=== PATIENT | female | born 1955 | race Caucasian/White ===

== ENCOUNTER 2024-12-04 12:43 | Outpatient (AMB) | payer MEDICARE, SELFPAY ==
--- NOTE | 2024-12-04 13:02 | A.OFFVIS_ITS ---
Intake Visit Reasons: results Allergies acetaminophen (From Tylenol-Codeine #3) Allergy (Verified 12/03/24 11:16) Unknown amoxicillin Allergy (Verified 12/03/24 11:16) Unknown codeine (From Tylenol-Codeine #3) Allergy (Verified 12/03/24 11:16) Unknown HPI Comments Details: 69 yo woman with obesity and IDDM was here for bilateral hand numbness and pain. It was happening for a few weeks. Pain was burning type and keeping her awake at night. It was mostly noted at night. Hands were also getting weak and things were falling from her hands. She was losing feeling in fingers. She was here after the test [facility] Medical History (Updated 12/04/24 @ 13:12 by Jordan Rivera MD) Diabetes mellitus GERD (gastroesophageal reflux disease) Hypertension Physical Exam Neuro Other: Mental Status: Alert with normal orientation and attention. Normal spontaneous speech, fluency, and comprehension. No obvious issues with mood and memory. Affect is appropriate. Cranial Nerves: CN II: Visual knight full to confrontation, visual acuity intact. CN III, IV, : Pupils equal, round, reactive to light and accommodation. Extraocular movements are normal. CN V: Facial sensation is normal. CN VII: Facial movements symmetrical. CN VIII: Hearing intact to bedside conversation is normal. Motor: Bulk and tone normal in all extremities. No significant muscle weakness in arms and legs. No drift. Gait and Station: No obvious gait abnormality. No ataxia or instability. Sensory: Intact to light touch, pinprick, and vibration. Romberg is negative. Extrapyramidal: Full facial expressions and blinking. No rigidity. Movements are appropriate with no tremor or abnormality. Speech: Normal; no dysarthria or tremor. 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 At this time she is advised to continue using wrist splints at night, as they have been helping. If after about 3 months, her symptoms would worsened or continue, surgical decompression can be considered. She should avoid repetitive hand motion and heavy physical activity with hands. Coding Level of Care Code Est Pt Level 3 (33835) Diagnoses Bilateral carpal tunnel syndrome G56.03 Laterality: bilateral
--- OUTSIDE RECORDS SUMMARY | 2024-12-04 13:36 | XMS_ITS | Clinical Summary ---
Author Organization [address] Address [address] [place] [address] Phone Care Team Providers Care [employer] Estate Investment Analyst Name Role Phone En Ballard MD Primary Care Provider [phone] Allergies Active Allergy Reactions Criticality Noted Date Comments Amoxicillin Swelling 04/24/2024 Amoxicillin Trihydrate Itching Medium 09/15/2008 Other Reaction(s): Hives/Urticaria Codeine 05/24/2005 Other Reaction(s): Hives/Urticaria Exenatide Diarrhea 08/01/2009 Byetta Lidocaine Base 04/24/2024 Novocain - tachycardia Linagliptin Diarrhea High 11/15/2018 Tradjenta Lisinopril Cough High 10/22/2016 Pioglitazone 06/20/2007 Weight gain and water retention/ Actos Simvastatin 11/03/2021 Other Reaction(s): Myalgia and Joint Pain Medications albuterol HFA (PROAIR HFA ; PROVENTIL HFA ; VENTOLIN HFA) 90 mcg/actuation inhaler Inhale 2 Puffs into the lungs every 4 hours as needed for Cough or Wheezing. 10/03/19 24 Active aspirin 81 mg chewable tablet Take 81 mg by mouth daily. Active cetirizine (ZyrTEC) 10 mg tablet Take 10 mg by mouth daily. Active blood-glucose meter kit 1 Units by Does not apply route 4 times daily. 02/27/20 20 Active calcium carbonate (CHEWABLE CALCIUM ORAL) 600mg 2 chews daily Active fluticasone propionate (FLONASE) 50 mcg/actuation nasal spray 2 Sprays by Each Nare route daily for 30 days. 01/20/20 23 Active FREESTYLE LANCETS MISC 1 Device 4 times daily. Use to test blood sugar four times a day 01/19/20 11 Active fluoride, sodium, (PreviDent 5000 Booster Plus) 1.1 % paste USE DIRECTED TO BRUSH TEETH TWICE DAILY 09/09/19 23 Active multivitamin (MULTIPLE VITAMINS ORAL) 1 daily Activ e insulin syringe-needle U-100 1/2 mL 28 gauge syringe Use as needed 3 times a day with insulin 01/20/20 22 Active pen needle, diabetic 32 gauge x 5/32 needle Use with pens 5 times A day 10/01/19 23 Active latanoprost (XALATAN) 0.005 % ophthalmic solution Administer 1 drop into both eyes at bedtime. 12/12/19 24 Active insulin icebox man cart,aut,G6/7,c ntr (Omnipod 5 G6-G7 Intro Kt,Gen5,) cartridge Use daily for insulin delivery 1 each 04/24/20 24 Active insulin pump cart,auto,BT,G6 /7 (Omnipod 5 G6-G7 Pods, Gen 5,) cartridge Change pod every 3 days 30 each 3 07/17/19 25 Active amLODIPine (NORVASC) 5 mg tablet Take 1 tablet (5 mg total) by mouth 1 (one) time each day. 30 each 5 08/15/19 25 025 Active insulin glargine (Lantus Solostar U-100 Insulin) 100 unit/mL (3 mL) injection pen INJECT SUBCUTANEOUSLY 54 units BID SC 105 mL 2 08/18/19 25 Active Additional Information Patient taking differently: INJECT SUBCUTANEOUSLY 54 units BID SC - When not using pump, Reported on 11/08/2024 furosemide (LASIX) 40 mg tablet Take 1 tablet (40 mg total) by mouth 1 (one) time each day. 90 tablet 1 10/17/19 25 Active losartan (COZAAR) 100 mg tablet Take 1 tablet (100 mg total) by mouth 1 (one) time each day. 90 tablet 10/16/19 25 Active omeprazole (PriLOSEC) [address] capsule Take 1 capsule (20 mg total) by mouth 1 (one) time each day. Do not crush or chew. 90 each 10/27/19 25 025 Active insulin lispro (HumaLOG KwikPen Insulin) 100 unit/mL injection pen Inject 3 times a day with meals per sliding scale: 100-149:11 units; 150-200; 13 units; 201-249: 14 units; 250-300: 15 units; 301-350: 16 units; 351-400: 17 units, plus 4 more units at dinner Max daily dose 80 units 15 mL 11/01/19 25 Active Additional Information Patient taking differently: Inject 3 times a day with meals per sliding scale: 100-149:11 units; 150-200; 13 units; 201-249: 14 units; 250-300: 15 units; 301-350: 16 units; 351-400: 17 units, plus 4 more units at dinner Max daily dose 80 units - When not using PUMP, Reported on 11/08/2024 tirzepatide (Mounjaro) 7.5 mg/0.5 mL injectionIndica tions:Type 2 diabetes mellitus with diabetic neuropathy, unspecified whether ferry terminal agent insulin use ([facility] V24, [facility] V28) Inject 0.5 mL (7.5 mg total) under the skin every 7 (seven) days. 2 mL 11/09/19 25 Active insulin lispro 100 unit/mL injection Use daily with insulin pump. Max dose 150 units 150 mL 1 11/13/19 25 Active tirzepatide (Mounjaro) 5 mg/0.5 mL injectionIndica tions:Type 2 diabetes mellitus with diabetic neuropathy, unspecified whether mcc insulin use ([facility] V24, [facility] V28) Inject 0.5 mL (5 mg total) under the skin every 7 (seven) days. 2 mL 10/19/19 25 025 Discontin ued(Formu destiny change) insulin lispro 100 unit/mL injection Use daily with insulin pump. Max dose 150 units 30 mL 11 10/27/19 25 025 Discontin ued(Reord er) insulin lispro 100 unit/mL injection Use daily with insulin pump. Max dose 150 units 30 mL 11 11/09/19 25 025 Discontin ued(Reord er) Active Problems Problem Noted Date Diagnosed Date Thyroid nodule 05/18/2021 Subclinical hyperthyroidism 05/18/2021 Venous insufficiency of both lower extremities 1 07/11/2017 Morbid obesity ([facility] V24, [facility] V28) 2013 Type 2 diabetes mellitus wit h diabetic neuropathy ([facility] V24, [facility] V28) 03/20/2013 Diabetic polyneuropathy ([facility] V24, [facility] V2 8) 03/20/2013 Eczema 02/27/2008 Irritable bowel syndrome 04/09/2005 Goiter 04/09/2005 Overview (03/19/2024): IMO update Hyperlipidemia 04/09/2005 Encounters Date Type Department Care Team Description 11/14/2024 Telephone Endocrinology - [address] [phone] Nikki Jules PA Medication Problem 11/08/2024 8:00 AM EDT Office Visit Endocrinology - [address] [phone] Nikki Jules PA Type 2 diabetes mellitus with diabetic neuropathy, unspecified whether mcc insulin use ([facility] V24, [facility] V28) (Primary Dx); Secondary hypertension; Thyroid nodule 10/23/2024 Telephone Endocrinology - [address] [phone] Nikki Jules PA 10/18/2024 2:30 PM EDT Office Visit Endocrinology - [address] [phone] Nikki Jules PA Type 2 diabetes mellitus with diabetic neuropathy, unspecified whether mcc insulin use ([facility] V24, [facility] V28) (Primary Dx); Screening for osteoporosis; Postmenopausal; Thyroid nodule 10/16/2024 3:27 PM EDT - 10/16/2024 11:59 PM EDT [facility] [address] [place] [address] Thyroid nodule Discharge Disposition: Home or Self Care 09/06/2024 10:00 AM EDT Consult Vascular Surgery - [place] [address] [place] [address] Minal Menchaca PA Bilateral lower extremity edema (Primary Dx); Morbid obesity (CMS/HCC V24, CMS/HCC V28) from Last 3 Months Immunizations Name Administration Dates Next Due Influenza Quadravalent, MDCK , 0.5ml, preservative free (Flucelvax) 6mo and older 05/18/2019,02/23/2018 Influenza trivalent, 0.5mL ( Fluad) 65yo and older 02/22/2021,03/24/2020 Influenza trivalent, 0.5mL, preservative free (Fluarix; FluLaval; Fluzone) ages 6mo and older (Afluria) 3 years and older 02/26/2016,02/21/2013,03/20/2012,02/10,04/04/2010,02/27/2009,03/14/2007 ,03/08/2006,05/01/2001 Pfizer SARS-CoV-2 COVID-19, mRNA, LNP-S, preservative free 04/16/2021,10/03/2020 Pneumococcal conjugate 13 va lent (Prevnar 13, PCV13) 2mo and older 11/03/2021 Pneumococcal polysaccharide 23 valent (Pneumovax 23) 2yo and older 03/24/2020,06/05/1996 Td Tetanus diptheria (Tdvax) 7yo and older 08/04/2020 Tdap Tetanus diptheria acell ular pertussis (Boostrix; Adacel) 7yo and older 03/14/2007 Surgical History Surgery Date Site/Laterality Comments CHOLECYSTECTOMY PROCEDURE: LAPAROSCOPY, CHOLECYSTECTOMY LAPAROSCOPIC GASTRIC BANDING 06/2006 PROCEDURE: LAP ADJUSTABLE GASTRIC BAND; COMMENT: Luis Alberto FOOT SURGERY PROCEDURE: HISTORICAL FOOT SURGERY; COMMENT: SMALL TOES HYSTERECTOMY PROCEDURE: HISTORICAL HYSTERECTOMY BREAST BIOPSY 2016 Right PROCEDURE: BX BREAST; PERC NEEDLE CORE W/IMAG GUID; COMMENT: neg CYSTOSCOPY 02/2020 PROCEDURE: [place] CYSTOURETHROSCOPY; COMMENT: for evaluation of LUTS, Dr Moya OTHER SURGICAL HISTORY Right PROCEDURE: HISTORY OTHER; COMMENT: removed Goiter on R side of Thyroid Medical History Medical History Date Comments Chest pain, unspecified 04/09/2005 DX:Chest pain, unspecified Other and unspecified hyperlipidemia 04/09/2005 DX:Other and unspecified hyperlipidemia Irritable bowel syndrome 04/09/2005 DX:Irri table bowel syndrome Goiter, unspecified 04/09/2005 DX:Goiter, u nspecified Morbid obesity (CMS/HCC V24, CMS/HCC V28) 04/09/2005 DX:Morbid obesity (HCC); COM MENT: Luis Alberto; Lap Gastric Band Obesity, unspecified 03/14/2007 DX:Obesity, unspecified; COMMENT: gastric lab banding, Luis Alberto Status following gastric ban ding surgery for weight loss 06/20/2007 DX:Status following gastric banding surgery for weight loss Seasonal allergies 09/29/2007 DX:Seasonal a llergies Type II or unspecified type diabetes mellitus without mention of complication, not stated as uncontrolled 04/09/2005 DX:Type II or unspecified ty pe diabetes mellitus without mention of complication, not stated as uncontrolled Esophageal reflux DX:Esophageal reflux Family History Medical History Relation Name Comments Alcohol abuse Brother Brain Aneurysm Brother Cirrhosis Brother Diabetes Brother No Known Problems Daughter Arthritis Father Hypertension Father Diabetes Mother Stroke Mother Diabetes Sister 1 Heart attack Sister 1 Other: other Sister 1 copd COPD Sister 2 Diabetes Sister 2 Diabetes Son x2 Hypertension Son x2 Relation Name Status Comments Brother DM, Daughter Alive Father (Age 84) DM, HTN Mother Sister 1 DM, HTN Sister 2 DM, HEPATITIS, HIV POS Son x2 Alive Social History Tobacco Use Types Packs/Day Years Used Date Smoking Tobacco: Never Smokeless Tobacco: Never Tobacco Cessation:Counseling Given: Not Answered Alcohol Use Standard Drinks/Week Comments No 0 (1 standard drink = 0.6 oz pur e alcohol) Housing Instability Answer Date Recorde d Are you worried that in the next 2 months you may not have stable housing? No 08/14/2024 Food Access & Nutrition Answer Date Rec orded Do you have access to a vari ety of food including fruits and vegetables? Yes 08/14/2024 Access to Healthcare Answer Date Record ed Within the last 3 months, ho w many times did you visit the emergency department for your medical care? 0 08/14/2024 Health Literacy Answer Date Recorded How often do you need to hav e someone help you when you read instructions, pamphlets, or other written material from your doctor or pharmacy? Never 08/14/2024 Caregiver: How often do you need to have someone help you when you read instructions, pamphlets, or other written material from your doctor or pharmacy? Not on file 08/14/2024 Financial Risk Answer Date Recorded How hard is it for you to pa y for the very basics like food, housing, medical care, and air conditioning / heating? Not very hard 08/14/2024 Transportation Answer Date Recorded Has the lack of transportati on kept you from meetings, work, or from getting things needed for daily living? No 08/14/2024 Has the lack of transportati on kept you from medical appointments or from getting medications? Not on file 08/14/2024 Social Isolation Answer Date Recorded How often do you feel lonely or isolated from th ose around you? Never 08/14/2024 Food Risk Answer Date Recorded Within the past 12 months we worried whether our food would run out before we got money to buy more. Never true 08/14/2024 Within the past 12 months th e food we bought just didn't last and we didn't have money to get more. Never true 08/14/2024 Dependent Care Answer Date Recorded Do you need help finding or paying for care for your loved ones. For example, child protection specialist or elderly care for an older adult? No 08/14/2024 Education Answer Date Recorded Do you think completing more education or training, like finishing a GED, going to college, or learning a trade, would be helpful for you? N/A 08/14/2024 Employment and Income Answer Date Recor ded During the last four weeks, have you been actively looking for work? No 08/14/2024 Living Situation Answer Date Recorded What is your living situation? 0 08/14/2024 Comments No Sex and Gender Information Value Date Recorded Sex Assigned at Female 06/29/2024 9:30 AM EST Legal Sex Female 4:37 AM EST Gender Identity Female 06/29/2024 9:30 AM EST Sexual Orientation Straight 06/29/2024 9: 30 AM EST Obstetrics History Last Filed Vital Signs Vital Sign Reading Time Taken Comments Blood Pressure 112/72 11/08/2024 8:15 AM EDT C Pulse 72 11/08/2024 8:15 AM EDT Temperature 36.1 C (96.9 F) 11/08/2024 8:15 AM EDT Respiratory Rate - - Oxygen Saturation 96% 10/18/2024 2:42 PM EDT Inhaled Oxygen Concentration - - Weight 139 kg (306 lb) 11/08/2024 8:15 AM EDT Height 168.9 cm (5' 6.5 ) 11/08/2024 8:15 AM EDT Body Mass Index 48.65 11/08/2024 8:15 AM EDT Plan of Treatment Upcoming Encounters Date Type Department Care Team (Late st Contact Info) Description 12/13/2024 8:30 AM EDT Ancillary Procedure [facility] [address] [facility] [address] [place] [address] 12/21/2024 9:30 AM EDT [facility]ointment [facility] [address] [place] [address] 12/25/2024 9:00 AM EDT Appointment [facility] Bone Density [address] [place] [address] 12/27/2024 11:30 AM EDT Office Visit Vascular Surgery - [place] [address] [facility] [address] [place] [address] Keren Delacruz MD [address] [facility] [address] [place] [address] 01/24/2025 9:00 AM EDT Office Visit Internal Medicine - [address] [phone] En Ballard MD [address] [place] [address] 02/08/2025 9:30 AM EDT Office Visit Endocrinology - [address] [phone] Nikki Jules PA [address] [place] [phone] Health Maintenance Due Date Last Done Comments Diabetes: Annual Foot Exam 1965 Zoster Vaccines (1 of 2) 2005 Medicare Annual Wellness Visit 05/15/2022 Osteoporosis Screening (Bone Density Screening) 05/15/2022 Breast Cancer Screening 01/23/2023 01/23/2021, 01/03 Diabetes: Annual Urine Albumin-Creatinine Ratio (uACR) 11/19/2023 11/18/2022 COVID-19 Vaccine ( season) 2024 02/23/2024, 2024, 12/25/2021, Additional history exists Diabetes: Annual Retina Eye Exam 12/19/2024 12/20/2023 Diabetes: Blood Sugar Control Test (HGBA1C) 02/14/2025 08/14/2024, 04/20/2024, 10/25/2023, Additional history exists Depression Screening 08/14/2025 08/14/2024 Diabetes: Annual GFR (Glomerular Filtration Rate) 08/14/2025 08/14/2024, 12/02/2023, 12/02/2023, Additional history exists Falls Risk Assessment 08/14/2025 08/14/2024 Hypertension/CHF/CAD Annual BMP Blood Test 08/14/2025 08/14/2024, 12/02/2023, 12/02/2023, Additional history exists Social Influencers of Health Screening 08/14/2025 08/14/2024 Cholesterol Screening (Lipid Panel) 08/14/2029 08/14/2024, 10/25/2023, 10/25/2023 DTaP,Tdap,and Td Vaccines (3 - Td or Tdap) 08/04/2030 08/04/2020, 03/14/2007 Colorectal Cancer Screening: Colonoscopy 09/03/2030 09/03/2020 Hepatitis C Screening Completed 09/17/2021 Influenza Vaccine Completed 02/23/2024, , 04/16/2021, Additional history exists Pneumococcal Vaccine: 50+ Years Completed 02/23/2024, 2024, 11/03/2021, Additional history exists RSV Immunization Adult Patients Completed 02/23/2024 HIB Vaccines Aged Out No longer eligi ble based on patient's age to complete this topic HPV Vaccines Aged Out No longer eligi ble based on patient's age to complete this topic Hepatitis A Vaccines Aged Out No long er eligible based on patient's age to complete this topic Hepatitis B Vaccines Aged Out No long er eligible based on patient's age to complete this topic IPV Vaccines Aged Out No longer eligi ble based on patient's age to complete this topic MMR Vaccines Aged Out No longer eligi ble based on patient's age to complete this topic Meningococcal ACWY Vaccine Aged Out N o longer eligible based on patient's age to complete this topic Meningococcal B Vaccine Aged Out No l onger eligible based on patient's age to complete this topic RSV Immunization Patients Under 20 months Aged Out No longer eligible based on patient's age to complete this topic Varicella Vaccines Aged Out No longer eligible based on patient's age to complete this topic Procedures Procedure Name Priority Date/Time Associated Diagnosis Comments US HEAD NECK SOFT TISSUE Routine 10/16/2024 3:57 PM EDT Thyroid nodule BASIC METABOLIC PANEL Routine 08/14/2024 9:38 AM EDT Type 2 diabetes mellitus with diabetic neuropathy, unspecified whether mcc insulin use (CMS/HCC V24, [facility] V28) Primary hypertension HEMOGLOBIN A1C Routine 08/14/2024 9:38 AM EDT Type 2 diabetes mellitus with diabetic neuropathy, unspecified whether ferry terminal agent insulin use (CMS/HCC V24, CMS/[facility] V28) LIPID PANEL WITH REFLEX TO DIRECT LDL Routine 08/14/2024 9:38 AM EDT Type 2 diabetes mellitus with diabetic neuropathy, unspecified whether mcc insulin use (CMS/HCC V24, CMS/HCC V28) Primary hypertension DIABETES EYE EXAM Routine 12/20/2023 URINE ALBUMIN CREATININE RATIO Routine 11/18/2022 HEPATITIS C SCREENING Routine 09/17/2021 SCREENING MAMMOGRAPHY BI 2-VIEW BREAST INC CAD Routine 01/23/2021 11:42 AM EDT Encounter for screening mammogram for malignant neoplasm of breast HM COLONOSCOPY Routine 09/03/2020 from Last 3 Months or Most Recently Relevant to Health Maintenance Results * US Head Neck Soft Tissue (10/16/2024 3:57 PM EDT) Anatomical Region Laterality Modality Head and Neck Ultrasound 10/16/2024 4:59 PM EDT Impressions 10/16/2024 5:04 PM EDT Left thyroid nodules as described. Direct comparison with the previous study is difficult due to the multinodular goiter. Left isthmus nodule measuring on the previous study is not apparent on the current study. Status post right hemithyroidectomy. -------- FINAL REPORT -------- Dictated By: Jumana Oneal Dictated Date: 10/16/2024 16:59 ET Assigned Physician: Jumana Oneal Reviewed and Electronically Signed By: Jumana Oneal Signed Date: 10/16/2024 17:04 ET Workstation ID: [id number] Transcribed By: Self Edit Transcribed Date: 10/16/2024 16:59 ET Narrative 10/16/2024 5:04 PM EDT US HEAD NECK SOFT TISSUE THYROID SOFT TISSUES NECK HISTORY: Thyroid nodules. Status post right hemithyroidectomy. Prior: Thyroid ultrasound 10/29/2022. FINDINGS: The left lobe of the thyroid gland is heterogeneous in echotexture and demonstrates normal vascularity by color Doppler interrogation. No ultrasound abnormality is seen in the right thyroid bed. 1.3 x 0.6 x 1.0 cm nodule upper pole left lobe, previously 1.5 x 0.6 x 1.1 cm. 1.4 x 0.7 x 1.3 cm nodule midpole left lobe, previously 1.8 x 1.1 x 1.3 cm. 1.3 x 0.9 x 1.3 cm hypoechoic nodule, wider than tall, posterior midpole left lobe. This is apparently new. 1.3 x 0.8 x 1.2 cm nodule lower pole left lobe, previously 1.1 x 1.2 x 1.1 cm. The right lobe of the thyroid is surgically absent. The left lobe of the thyroid measures 5.5 x 2.2 x 2.4 cm. The thyroid isthmus measures 7 mm in thickness. Procedure Note Jumana Oneal MD - 10/16/2024 US HEAD NECK SOFT TISSUE THYROID SOFT TISSUES NECK HISTORY: Thyroid nodules. Status post right hemithyroidectomy. Prior: Thyroid ultrasound 10/29/2022. FINDINGS: The left lobe of the thyroid gland is heterogeneous inechotexture and demonstrates normal vascularity by color Dopplerinterrogation. No ultrasound abnormality is seen in the right thyroid bed. 1.3 x 0.6 x 1.0 cm nodule upper pole left lobe, previously 1.5 x 0.6 x 1.1cm. 1.4 x 0.7 x 1.3 cm nodule midpole left lobe, previously 1.8 x 1.1 x 1.3cm. 1.3 x 0.9 x 1.3 cm hypoechoic nodule, wider than tall, posterior midpoleleft lobe. This is apparently new. 1.3 x 0.8 x 1.2 cm nodule lower pole left lobe, previously 1.1 x 1.2 x 1.1cm. The right lobe of the thyroid is surgically absent. The left lobe of the thyroid measures 5.5 x 2.2 x 2.4 cm. The thyroidisthmus measures 7 mm in thickness. IMPRESSION: Left thyroid nodules as described. Direct comparison with the previousstudy is difficult due to the multinodular goiter. Left isthmus nodulemeasuring on the previous study is not apparent on the current study. Status post right hemithyroidectomy. -------- FINAL REPORT -------- Dictated By: Jumana Oneal Dictated Date: 10/16/2024 16:59 ET Assigned Physician: Jumana Oneal Reviewed and Electronically Signed By: Jumana Oneal Signed Date: 10/16/2024 17:04 ET Workstation ID: [id number] Transcribed By: Self Edit Transcribed Date: 10/16/2024 16:59 ET us Nikki MAIER IMG US PROCEDURES Final Res ult * (ABNORMAL) Lipid panel with reflex to direct LDL (08/14/2024 9:38 AM EDT) Cholesterol 179 0 - 200 mg/dL LAB CHEMISTRY METHOD 08/14/2024 12:18 PM EDT [facility] Triglycerides 82 0 - 150 mg/dL LAB CHEMISTRY METHOD 08/14/2024 12:18 PM EDT [facility] HDL 45 >=40 mg/dL LAB CHEMISTRY METHOD 08/14/2024 12:18 PM EDT [facility] LDL Calculated 118(H) 0 - 100 mg/dL LAB CHEMISTRY METHOD 08/14/2024 12:18 PM EDT [facility] VLDL Cholesterol Raza 16.4 mg/dL LAB CHEMISTRY METHOD 08/14/2024 12:18 PM EDT [facility] Non HDL Chol. (LDL+VLDL) 134 <145 mg/dL LAB CHEMISTRY METHOD 08/14/2024 12:18 PM EDT [facility] Chol/HDL Ratio 4.0 0.0 - 4.4 LAB CHEMISTRY METHOD 08/14/2024 12:18 PM EDT [facility] Blood Venous blood specimen / Unknown Venipuncture / Unknown 08/14/2024 9:38 AM EDT 08/14/2024 9:38 AM EDT us En Ballard MD LAB BLOOD ORDERABLES Final Res ult [facility] [address] [place] [address], * (ABNORMAL) Hemoglobin A1c (08/14/2024 9:38 AM EDT) Hemoglobin A1C 7.6(H) <6.5 % LAB CHEMISTRY METHOD 08/14/2024 2:28 PM EDT [facility] Mean Bld Glu Estim. 171 mg/dL LAB CHEMISTRY METHOD [facility]/14[facility]24 [facility] Blood Venous blood specimen / Unknown Venipuncture / Unknown 08/14/2024 9:38 AM EDT 08/14/2024 9:38 AM EDT us Nikki MAIER LAB BLOOD ORDERABLES Final Result [facility] [address] [place] [address], [place] [phone] * Basic metabolic panel (08/14/2024 9:38 AM EDT) Sodium 139 133 - 145 mmol/L LAB CHEMISTRY METHOD 08/14/2024 12:16 PM [facility] Potassium 4.4 3.5 - 5.5 mmol/L LAB CHEMISTRY METHOD 08/14/2024 12:16 PM [facility] Chloride 105 96 - 110 mmol/L LAB CHEMISTRY METHOD 08/14/2024 12:16 PM [facility] CO2 31 21 - 32 mmol/L LAB CHEMISTRY METHOD 08/14/2024 12:16 PM [facility] Anion Gap 3 3 - 11 LAB CHEMISTRY METHOD 08/14/2024 12:16 PM [facility] Glucose 95 70 - 100 mg/dL LAB CHEMISTRY METHOD 08/14/2024 12:16 PM [facility] BUN 22 5 - 25 mg/dL LAB CHEMISTRY METHOD 08/14/2024 12:16 PM [facility] Creatinine 0.90 0.50 - 1.10 mg/dL LAB CHEMISTRY METHOD 08/14/2024 12:16 PM [facility] eGFR 69 >=60 mL/min/1. 73m2 LAB CHEMISTRY METHOD 08/14/2024 12:16 PM [facility] Comment:Calculation based on the Chronic Kidney Disease Epidemiology Collaboration (CKD-EPI) equation refit without adjustment for race. BUN/Creatinine Ratio 24.4 LAB CHEMISTRY METHOD 08/14/2024 12:16 PM EDT [facility] Calcium 9.0 8.5 - 10.5 mg/dL LAB CHEMISTRY METHOD 08/14/2024 12:16 PM EDT [facility] Blood Venous blood specimen / Unknown Venipuncture / Unknown 08/14/2024 9:38 AM EDT 08/14/2024 9:38 AM EDT En Ballard MD LAB BLOOD ORDERABLES Final Res ult [facility] [address] [place] [address], [place] [phone] * Diabetes Eye Exam (12/20/2023) Pathologist [facility] [place] Diabetes: Annual Retina Eye Exam abstracted Historical Provider MD HEALTH MAINTENANCE Final Result * Urine Albumin Creatinine Ratio (11/18/2022) Pathologist [facility] Urine Albumin Creatinine Ratio abstracted [facility] Provider HEALTH MAINTENANCE Final Result * Hepatitis C Screening (09/17/2021) [facility] Hepatitis C Screening abstracted Historical Provider MD HEALTH MAINTENANCE Final Result * SCREENING MAMMOGRAPHY BI 2-VIEW BREAST INC CAD (01/23/2021 11:42 AM EDT) Anatomical Region Laterality Modality Radiographic Janice ging 08/04/2020 3:44 PM EST Narrative 01/23/2021 5:50 PM EDT This is a summary report. The complete report is available in the patient's medical record. If you cannot access the medical record, please contact the sending organization for a detailed fax or copy. BILATERAL 2D and 3D DIGITAL SCREENING MAMMOGRAM History: Routine screening. No current breast complaints. Family history of breast cancer in mother Comparison: Multiple priors dating back to 05/06/2016 Technique: Bilateral full-field digital 2D and 3D mammography was performed using standard CC and MLO projections, L CC WIRE BOUND BOX MACHINE HELPER CAD was used to evaluate this mammogram. Findings: Density: There are scattered areas of fibroglandular density-B RIGHT: No suspicious masses, groups of microcalcification or areas of architectural distortion identified. Stable typically benign parenchymal asymmetries LEFT: No suspicious masses, groups of microcalcifications or areas of architectural distortion identified. Stable typically benign parenchymal asymmetries IMPRESSION: : 1. No mammographic evidence of malignancy. BI-RADS Category 2 benign findings Recommendation: Routine annual screening mammography is recommended Procedure Note Stephen Bain MD - 05/25/2022 This is a summary report. The complete report is available in thepatient's medical record. If you cannot access the medical record, pleasecontact the sending organization for a detailed fax or copy. BILATERAL 2D and 3D DIGITAL SCREENING MAMMOGRAM History: Routine screening. No current breast complaints. Family historyof breast cancer in mother Comparison: Multiple priors dating back to 05/06/2016 Technique: Bilateral full-field digital 2D and 3D mammography wasperformed using standard CC and MLO projections, L CC WIRE BOUND BOX MACHINE HELPER CAD was used to evaluate this mammogram. Findings: Density: There are scattered areas of fibroglandular density-B RIGHT: No suspicious masses, groups of microcalcification or areas ofarchitectural distortion identified. Stable typically benign parenchymalasymmetries LEFT: No suspicious masses, groups of microcalcifications or areas ofarchitectural distortion identified. Stable typically benign parenchymalasymmetries IMPRESSION: : 1. No mammographic evidence of malignancy. BI-RADS Category 2 benign findings Recommendation: Routine annual screening mammography is recommended En Ballard MD IMG XR PROCEDURES Final Result * Colonoscopy (09/03/2020) Colonoscopy normal, abstracted Anatomical Region Laterality Modality Other Historical Provider HEALTH MAINTENANCE Final Result from Last 3 Months or Most Recently Relevant to Health Maintenance Insurance [employer] [place] [id number] Care Teams Real Estate Investment Analyst Relationship Specialty Start Date End Date En Ballard MD [address] [place] [id number] PCP - General Internal Medicine 04/20/24
== END 2024-12-04 13:19 | disposition home or self-care (01) ==
LOC: HO.HSM 12:44
PROVIDERS: PCP Internal Medicine; Visit Provider Psychiatry & Neurology Neurology
DX: G56.03 Carpal tunnel syndrome, bilateral upper limbs (principal)
CPT/HCPCS: 99213

== ENCOUNTER → 2024-12-04 12:43 | Outpatient (BNVA) | payer MEDICARE, SELFPAY | PROVIDERS: PCP Internal Medicine; Visit Provider Psychiatry & Neurology Neurology | DX: G56.03 Carpal tunnel syndrome, bilateral upper limbs (principal) | CPT/HCPCS: 99212 ==